=== PATIENT | female | born 1990 | race Caucasian/White ===

== ENCOUNTER 2017-05-20 05:10 | Emergency (ER) | payer MEDICAID ==
[~2017-05-20] VITALS: Ht 167.6 cm; Wt 78.5 kg
[~2017-05-20 05:10] MED LIST: ACET500C5 PO; BUTA1CAP39 PO; CYCL-319 PO; DOCU-144 PO; HYDR-3498 PO; HYDR-906 PO; IBUP-1542 PO; MAG-19 PO; NAPR-260 PO; OMEP20CA9 PO; ONDA4TAB35 PO; RANI150T9 PO; TRAM50TA2 PO
[2017-05-20 05:13] VITALS: Ht 167.6 cm; Wt 78.5 kg
[2017-05-20] MEDS ORDERED: LIDOCAINE/MYLANTA 40 ML BTL PO ONE (06:30)
[2017-05-20] MEDS ORDERED: HYDROCODONE/APAP (5/325) TAB PO ONE (06:30)
[2017-05-20 06:54] LABS: URINE BLOOD (Dip) POC Negative (NEGATIVE)
[2017-05-20 06:58] LABS: ADD SCAN DIFF NO
[2017-05-20 07:04] LABS: BASOPHILS % 0.4 % (0.0-2.0); EOSINOPHILS # 0.1 10^3/ul (0.0-0.5); EOSINOPHILS % 0.8 % (0.0-7.0); HEMATOCRIT 45.5 % (37.0-47.0); LYMPHOCYTES # 3.2 10^3/ul (0.8-2.9); LYMPHOCYTES % 31.2 % (15.0-51.0); MEAN CORPUSCULAR HEMOGLOBIN 29.6 pg (29.0-33.0); MEAN CORPUSCULAR VOLUME 89.9 fl (82.0-101.0); MEAN PLATELET VOLUME 9.7 fl (7.4-10.4); MONOCYTE # 0.7 10^3/ul (0.3-0.9); MONOCYTES % 6.8 % (0.0-11.0); NEUTROPHIL # 6.3 10^3/ul (1.6-7.5); NEUTROPHILS % 60.5 % (39.0-77.0); PLATELET COUNT 331 10^3/UL (140-415); RED BLOOD COUNT 5.06 10^6/ul (4.20-5.40); RED CELL DISTRIBUTION WIDTH 13.2 % (11.5-14.5); WHITE BLOOD COUNT 10.4 10^3/ul (4.8-10.8)
[2017-05-20 07:36] LABS: ALBUMIN 5.2 g/dl (3.3-4.9); ALBUMIN/GLOBULIN RATIO 1.33; BILIRUBIN,INDIRECT 0.3 mg/dl (0-1.1); BILIRUBIN,TOTAL 0.3 mg/dl (0.2-1.3); CREATININE 0.68 mg/dl (0.44-1.00); TOTAL PROTEIN 9.1 g/dl (6.1-8.1)
--- NOTE | 2017-05-20 08:00 | ERD ---
ER Documentation Chief Complaint Date/Time DATE: 05/20/17 TIME: 07:59 Chief Complaint left upper abd pain x 3 days HPI This a 27-year-old female who presents the emergency department today complaining of left-sided upper abdominal pain for the past 3 days. States she has a history of gastritis and took some ibuprofen. States she ate pancakes and tamales yesterday. Denies any fevers or chills, dysuria, nausea or vomiting. ROS All systems reviewed and are negative except as per history of present illness. Medications Home Meds Active Scripts Hydrocodone/Acetaminophen ([place]ison 5-325 Tablet) 1 Each Tablet, 1 TAB PO Q6H Y for PAIN, #10 TAB Prov:RENETTA JOHNSTONC 05/20/17 Famotidine* (Pepcid*) 20 Mg Tablet, 20 MG PO BID for 10 Days, TAB Prov:RENETTA JOHNSTONC 05/20/17 Acetaminophen* (Tylophen*) 500 Mg Capsule, 1 CAP PO Q6H Y for PAIN AND OR ELEVATED TEMP, #30 CAP Prov:RENETTA JOHNSTONC 05/20/17 Naproxen* (Naprosyn*) 500 Mg Tablet, 500 MG PO BID Y for PAIN AND/OR INFLAMMATION, #30 TAB Prov:RENETTA JOHNSTONC 11/11/16 Tramadol HCl (Tramadol HCl) 50 Mg Tablet, 50 MG PO Q4 Y for PAIN, #20 TAB Prov:RENETTA JOHNSTONC 11/11/16 Ibuprofen* (Ibuprofen*) 600 Mg Tablet, 600 MG PO Q6 for 3 Days, TAB Prov:STEPHY MARR 10/17/16 Docusate Sodium* (Colace*) 100 Mg Capsule, 100 MG PO TID, #30 CAP Prov:STEPHY MARR 10/17/16 Hydrocodone/Acetaminophen (Madison 5-325 Tablet) 1 Each Tablet, 1 TAB PO Q6H Y for PAIN, #7 TAB Prov:STEPHY MARR 09/14/16 Ibuprofen* (Motrin*) 600 Mg Tab, 600 MG PO Q6, #30 TAB Prov:STEPHY MARR 09/14/16 Cyclobenzaprine Hcl* (Cyclobenzaprine Hcl*) 10 Mg Tablet, 10 MG PO TID, #15 TAB Prov:SURINDER BOWENS NP 06/06/16 Ibuprofen* (Motrin*) 600 Mg Tab, 600 MG PO Q6H Y for PAIN AND OR ELEVATED TEMP, #30 TAB Prov:SURINDER BOWENS NP 06/06/16 Hydrocodone Bit-Acetaminophen* (Madison*) 5-325 Mg Tab, 1 TAB PO Q6 Y for PAIN, # 20 TAB Prov:SURINDER BOWENS NP 06/06/16 Ondansetron Hcl* (Zofran* ODT) 4 mg -ODT Tab.disper, 4 MG PO DAILY Y for NAUSEA AND/OR VOMITING, #10 TAB 0 Refills Prov:SEE MASSEY PA-C 05/04/16 Ibuprofen* (Motrin*) 600 Mg Tab, 600 MG PO Q8, #30 TAB 0 Refills Prov:SEE MASSEY PA-C 05/04/16 Hydrocodone Bit-Acetaminophen* (Madison*) 5-325 Mg Tab, 1 TAB PO Q6 Y for PAIN, # 10 TAB Prov:FRANCES BRIAN PA-C 03/26/16 Ranitidine Hcl* (Zantac*) 150 Mg Tablet, 150 MG PO BID Y for PAIN, #30 TAB Prov:FRANCES BRIAN PA-C 03/26/16 Omeprazole* (Prilosec*) 20 Mg Capsule.dr, 20 MG PO DAILY, #30 CAP Prov:FRANCES BRIAN PA-C 03/26/16 Omeprazole* (Prilosec*) 20 Mg Capsule.dr, 20 MG PO DAILY, #30 CAP Prov:SURINDER BOWENS NP 11/17/15 Magaldrate/Simethicone* (Mylanta*) 355 Ml Susp, 30 ML PO QID Y for GASTROINTESTINAL UPSET, #1 BOTTLE Prov:SURINDER BOWENS NP 11/17/15 Rnxprmhagfvgk-Rwnkctbvxy-Vjtbotcm-Codeine* (Fioricet w/ Codeine*) [id number]- 30MG Capsule, 1 CAP PO Q6H Y for PAIN LEVEL 1-5, #20 CAP Prov:SURINDER BOWENS NP 11/2/15 Ibuprofen* (Ibuprofen*) 600 Mg Tablet, 600 MG PO Q6H Y for PAIN for 7 Days, TAB Prov:STEPHY MARR 08/13/15 Reported Medications Acetaminophen* (Tylophen*) Unknown Strength Capsule, PO Q6H Y for PAIN AND OR ELEVATED TEMP, #20 CAP 10/03/15 Allergies Allergies: Coded Allergies: No Known Allergy (Unverified , 09/13/16) PMhx/Soc Medical and Surgical Hx: pt denies Medical Hx, pt denies Surgical Hx History of Surgery: No Anesthesia Reaction: No Hx Neurological Disorder: No Hx Respiratory Disorders: No Hx Cardiac Disorders: No Hx Psychiatric Problems: No Hx Miscellaneous Medical Probl: No Hx Alcohol Use: No Hx Substance Use: No Hx Tobacco Use: No Physical Exam Vitals Vital Signs Date Time Temp Pulse Resp B/P Pulse Ox O2 Delivery O2 Flow Rate FiO2 05/20/17 05:13 98.4 75 20 148/77 97 Physical Exam Const: Obese, no acute distress Head: Atraumatic Eyes: Normal Conjunctiva ENT: Normal External Ears, Nose and Mouth. Neck: Full range of motion..~ No meningismus. Resp: Clear to auscultation bilaterally Cardio: Regular rate and rhythm, no murmurs Abd: Soft, left upper quadrant tenderness non distended. Normal bowel sounds. No right upper quadrant tenderness. No right lower quadrant tenderness. No left lower quadrant tenderness. Skin: No petechiae or rashes Back: No midline or flank tenderness Ext: No cyanosis, or edema Neur: Awake and alert Psych: Normal Mood and Affect Result Diagram: 05/20/17 0645 05/20/17 0645 Results 24 hrs Laboratory Tests Test 05/20/17 06:45 05/20/17 06:57 White Blood Count 10.410^3/ul Red Blood Count 5.0610^6/ul Hemoglobin 15.0g/dl Hematocrit 45.5% Mean Corpuscular Volume 89.9fl Mean Corpuscular Hemoglobin 29.6pg Mean Corpuscular Hemoglobin Concent 33.0g/dl Red Cell Distribution Width 13.2% Platelet Count 98374^3/UL Mean Platelet Volume 9.7fl Neutrophils % 60.5% Lymphocytes % 31.2% Monocytes % 6.8% Eosinophils % 0.8% Basophils % 0.4% Nucleated Red Blood Cells % 0.0/100WBC Neutrophils # 6.310^3/ul Lymphocytes # 3.210^3/ul Monocytes # 0.710^3/ul Eosinophils # 0.110^3/ul Basophils # 0.010^3/ul Nucleated Red Blood Cells # 0.010^3/ul Sodium Level 140mmol/L Potassium Level 4.0mmol/L Chloride Level 104mmol/L Carbon Dioxide Level 25mmol/L Anion Gap 15 Blood Urea Nitrogen 7mg/dl Creatinine 0.68mg/dl Glucose Level 92mg/dl Calcium Level 10.0mg/dl Total Bilirubin 0.3mg/dl Direct Bilirubin 0.00mg/dl Indirect Bilirubin 0.3mg/dl Aspartate Amino Transf (AST/SGOT) 27IU/L Alanine Aminotransferase (ALT/SGPT) 40IU/L Alkaline Phosphatase 81IU/L Total Protein 9.1g/dl Albumin 5.2g/dl Globulin 3.90g/dl Albumin/Globulin Ratio 1.33 Lipase 112U/L Bedside Urine pH (LAB) 5.5 Bedside Urine Protein (LAB) Negative Bedside Urine Glucose (UA) Negative Bedside Urine Ketones (LAB) Negative Bedside Urine Blood Negative Bedside Urine Nitrite (LAB) Negative Bedside Urine Leukocyte Esterase (L Negative Current Medications Medications (Trade) Dose Ordered Sig/Erasmo Route PRN Reason Start Time Stop Time Status Last Admin Dose Admin Acetaminophen/ Hydrocodone Bitart (Madison (5/325)) 1 tab ONCE ONCE PO 05/20/17 06:30 05/20/17 06:31 DC 05/20/17 07:09 Miscellaneous Medication (Gi Cocktail (2)) 40 ml ONCE ONCE PO 05/20/17 06:30 05/20/17 06:31 DC 05/20/17 07:09 Procedures/MDM This a 27-year-old female presents the emergency department today complaining of left-sided upper abdominal pain for the past 3 days. Given the location of pain I elected to obtain laboratory work Laboratory work shows no elevated white blood cell count. She is not anemic. Platelets are within normal limits. Glucose within normal limits. Liver functions within normal limits. Lipase within normal limits. UA is negative for infection. test is negative. I do not feel the patient requires imaging at this time is of low suspicion for acute surgical abdomen or splenic rupture. Patient has no lower abdominal pain low suspicion for tubo-ovarian abscess, ovarian torsion, ectopic , acute appendicitis, diverticulitis, pancreatitis, acute cholecystitis. Patient has left upper quadrant pain of uncertain etiology at this time. I explained to the patient that she is to follow-up with her primary care doctor. Patient was instructed not to take ibuprofen or Naprosyn given her history of gastritis. Patient was given Madison and GI cocktail here in the emergency department and reported pain improved. I will give her a very short course of Madison, Tylenol and Pepcid for home. At this time the patient is stable for discharge and outpatient management. Patient should follow up with their PCP in the next 1-2 days. They may return to the emergency department sooner for any persistent or worsening of symptoms. Patient understood and agreed with the plan. Departure Diagnosis: Primary Impression: Abdominal pain Abdominal location: left upper quadrant Qualified Code: R10.12 - Left upper quadrant pain Condition: Fair RENETTA JOHNSTON PA-C May 20, 2017 08:00
[2017-05-20] MEDS ORDERED: ACET500C5 PO (08:09)
[2017-05-20] MEDS ORDERED: FAMO-18 PO (08:09)
[2017-05-20] MEDS ORDERED: HYDR-906 PO (08:10)
== END 2017-05-20 08:35 | disposition home or self-care (01) ==
LOC: FTE 05:10
DX: R10.12 Left upper quadrant pain (principal)
CPT/HCPCS: 80053; 81003; 83690; 85025; Z7502; Z7610; 99283

== ENCOUNTER 2017-06-23 20:33 | Emergency (ER) | payer MEDICAID ==
[~2017-06-23] VITALS: Ht 167.6 cm; Wt 75.0 kg
[~2017-06-23 20:33] MED LIST changes: +FAMO-96 PO
[2017-06-23 20:45] VITALS: Ht 167.6 cm; Wt 75.0 kg
[2017-06-23] MEDS ORDERED: IBUPROFEN 600 MG TAB PO ONE (21:30)
--- NOTE | 2017-06-23 21:59 | RADRPT ---
PROCEDURE: US Pelvis. CLINICAL INDICATION: Right pelvic pain. TECHNIQUE: The pelvis was evaluated with transabdominal and transvaginal sonography in the axial a nd sagittal planes. COMPARISON: Pelvic ultrasound dated 10/17/2016. FINDINGS: Uterus: 5.8 x 3.4 x 4.2 cm. Endometrium: 0.5 mm. Right ovary: 3.2 x 2.7 x 3.2 cm. Left ovary: 3.0 x 2.6 x 3.0 cm. Uterine masses: None. Ovarian masses: There are benign-appearing right ovarian cysts with the largest measuring 3.0 cm in maximal dimension. The left ovary is normal. Color Doppler and pulsed Doppler sonography demonstrat e normal flow to the ovaries. Other pelvic masses: None. Free fluid: None. IMPRESSION: 1. Benign-appearing right ovarian cysts with the largest measuring 3.0 cm. Follow-up pelvic ultras ound in 3 months is advised. 2. Otherwise unremarkable pelvic ultrasound-guided RPTAT: QQ .Deon Britton MD, MD Date Time Electronically viewed and signed by .Deon Britton MD, on 06/23/2017 21:59 .R/
--- NOTE | 2017-06-23 23:03 | ERD ---
ER Documentation Chief Complaint Date/Time DATE: 06/23/17 TIME: 23:01 Chief Complaint LLQ abdominal pain for past few days history of ovarian cyst HPI 27-year-old female history of ovarian cyst comes emergency department for left- sided lower abdominal pain for the past month. She describes it as achy, moderate, localized pain. She has a copy of an ultrasound that was done in December 2016 at [facility], that showed a cyst on the left ovary. She states that this is same pain, not improving with Tylenol. She has not had fevers or chills, vaginal discharge, vaginal bleeding. ROS All systems reviewed and are negative except as per history of present illness. Medications Home Meds Active Scripts Ibuprofen* (Motrin*) 600 Mg Tab, 600 MG PO Q6, #30 TAB Prov:FRANCES BRIAN PA-C 06/23/17 Hydrocodone/Acetaminophen ([place] 5-325 Tablet) 1 Each Tablet, 1 TAB PO Q6H Y for PAIN, #10 TAB Prov:RENETTA JOHNSTON PA-C 05/20/17 Famotidine* (Pepcid*) 20 Mg Tablet, 20 MG PO BID for 10 Days, TAB Prov:RENETTA JOHNSTON PA-C 05/20/17 Acetaminophen* (Tylophen*) 500 Mg Capsule, 1 CAP PO Q6H Y for PAIN AND OR ELEVATED TEMP, #30 CAP Prov:RENETTA JOHNSTON PA-C 05/20/17 Naproxen* (Naprosyn*) 500 Mg Tablet, 500 MG PO BID Y for PAIN AND/OR INFLAMMATION, #30 TAB Prov:RENETTA JOHNSTON PA-C 11/11/16 Tramadol HCl (Tramadol HCl) 50 Mg Tablet, 50 MG PO Q4 Y for PAIN, #20 TAB Prov:RENETTA JOHNSTON PA-C 11/11/16 Ibuprofen* (Ibuprofen*) 600 Mg Tablet, 600 MG PO Q6 for 3 Days, TAB Prov:STEPHY MARR 10/17/16 Docusate Sodium* (Colace*) 100 Mg Capsule, 100 MG PO TID, #30 CAP Prov:STEPHY MARR 10/17/16 Hydrocodone/Acetaminophen ([place] 5-325 Tablet) 1 Each Tablet, 1 TAB PO Q6H Y for PAIN, #7 TAB Prov:STEPHY MARR 09/14/16 Ibuprofen* (Motrin*) 600 Mg Tab, 600 MG PO Q6, #30 TAB Prov:STEPHY MARR 09/14/16 Cyclobenzaprine Hcl* (Cyclobenzaprine Hcl*) 10 Mg Tablet, 10 MG PO TID, #15 TAB Prov:SURINDER BOWENS NP 06/06/16 Ibuprofen* (Motrin*) 600 Mg Tab, 600 MG PO Q6H Y for PAIN AND OR ELEVATED TEMP, #30 TAB Prov:SURINDER BOWENS NP 06/06/16 Hydrocodone Bit-Acetaminophen* ([place]*) 5-325 Mg Tab, 1 TAB PO Q6 Y for PAIN, # 20 TAB Prov:SURINDER BOWENS NP 06/06/16 Ondansetron Hcl* (Zofran* ODT) 4 mg -ODT Tab.disper, 4 MG PO DAILY Y for NAUSEA AND/OR VOMITING, #10 TAB 0 Refills Prov:SEE MASSEY PA-C 05/04/16 Ibuprofen* (Motrin*) 600 Mg Tab, 600 MG PO Q8, #30 TAB 0 Refills Prov:SEE MASSEY PA-C 05/04/16 Hydrocodone Bit-Acetaminophen* ([place]*) 5-325 Mg Tab, 1 TAB PO Q6 Y for PAIN, # 10 TAB Prov:FRANCES BRIAN PA-C 03/26/16 Ranitidine Hcl* (Zantac*) 150 Mg Tablet, 150 MG PO BID Y for PAIN, #30 TAB Prov:FRANCES BRIAN PA-C 03/26/16 Omeprazole* (Prilosec*) 20 Mg Capsule.dr, 20 MG PO DAILY, #30 CAP Prov:FRANCES BRIAN PA-C 03/26/16 Omeprazole* (Prilosec*) 20 Mg Capsule.dr, 20 MG PO DAILY, #30 CAP Prov:SURINDER BOWENS NP 11/17/15 Magaldrate/Simethicone* (Mylanta*) 355 Ml Susp, 30 ML PO QID Y for GASTROINTESTINAL UPSET, #1 BOTTLE Prov:SURINDER BOWENS NP 11/17/15 Bbiccyqfmolmw-Uighhkutzc-Yjpocxof-Codeine* (Fioricet w/ Codeine*) [id number]- 30MG Capsule, 1 CAP PO Q6H Y for PAIN LEVEL 1-5, #20 CAP Prov:SURINDER BOWENS [employer] 10/03/15 Ibuprofen* (Ibuprofen*) 600 Mg Tablet, 600 MG PO Q6H Y for PAIN for 7 Days, TAB Prov:STEPHY MARR Norm 08/13/15 Reported Medications Acetaminophen* (Tylophen*) Unknown Strength Capsule, PO Q6H Y for PAIN AND OR ELEVATED TEMP, #20 CAP 10/03/15 Allergies Allergies: Coded Allergies: No Known Allergy (Unverified , 06/23/17) PMhx/Soc Medical and Surgical Hx: pt denies Medical Hx History of Surgery: No Anesthesia Reaction: No Hx Neurological Disorder: No Hx Respiratory Disorders: No Hx Cardiac Disorders: No Hx Psychiatric Problems: No Hx Miscellaneous Medical Probl: No Hx Alcohol Use: No Hx Substance Use: No Hx Tobacco Use: No Smoking Status: Never smoker Physical Exam Vitals Vital Signs Date Time Temp Pulse Resp B/P Pulse Ox O2 Delivery O2 Flow Rate FiO2 06/23/17 20:45 98.7 85 18 141/86 97 Physical Exam General: Well-developed, well-nourished. The patient appears in no acute distress. HEENT: Head is normocephalic, atraumatic. No scleral icterus. Neck: Supple. Nontender. Lungs: Clear to auscultation. Normal air movement. Heart: Regular rate and rhythm. S1 and S2 are normal. No murmurs, gallops, or rubs. Abdomen: Soft, tender in left lower quadrant that is mild, no rebound pain, no masses, right is unremarkable, nondistended. Bowel sounds are normoactive. Extremities: No clubbing or cyanosis. Normal pulses. Moving extremities x 4. No weakness. Neurologic: Alert and oriented 3. No focal deficits. Skin: Normal turgor. No rash or lesions. Results 24 hrs Current Medications Medications (Trade) Dose Ordered Sig/Erasmo Route PRN Reason Start Time Stop Time Status Last Admin Dose Admin Ibuprofen (Motrin) 600 mg ONCE ONCE PO 06/23/17 21:30 06/23/17 21:31 DC 06/23/17 21:28 Acetaminophen/ Hydrocodone Bitart ([place] (5/325)) 1 tab ONCE ONCE PO 06/24/17 00:00 06/24/17 00:01 DC 06/23/17 23:50 DIAGNOSTIC IMAGING REPORT Patient: MANJULA PETER : 1990 Age: 27 Sex: F MR #: [id number] DOS: 06/23/172216 Ordering MD: FRANCES BRIAN PA-C Location: [facility] Room/Bed: PROCEDURE: CT abdomen and pelvis without intravenous contrast. CLINICAL INDICATION: Pain. TECHNIQUE: CT of the abdomen/pelvis was performed utilizing axial images with reconstructions in sagittal and coronal planes. The administered radiation dose is CTDI 10.1 mGy, DLP 599 mGy-cm. COMPARISON: 05/04/2016 FINDINGS: Visualized Chest: The visualized lung bases are clear. Abdomen: The a spleen, pancreas, gallbladder,and adrenal glands are unremarkable. The kidneys are without hydronephrosis. No definite urinary calculi are seen. There is no evidence of bowel obstruction. The appendix is normal. No intra- abdominal free air is seen. There is no evidence of intra-abdominal adenopathy or free fluid. Pelvis: There is no evidence of pelvic adenopathy. The uterus and ovaries are without enlargement. The urinary bladder is unremarkable. There is no pelvic free fluid. Osseous structures: Unremarkable. IMPRESSION: No acute findings. RPTAT: HIKT .Elmer Stuart MD, MD Date Time Electronically viewed and signed by .Elmer Stuart MD, on 06/24/2017 00:04 .T/ CC: FRANCES BRIAN PA-C DIAGNOSTIC IMAGING REPORT Patient: MANJULA PETER : 1990 Age: 27 Sex: F MR #: [id number] DOS: 06/23/172108 Ordering MD: FRANCES BRIAN PA-C Location: [facility] Room/Bed: PROCEDURE: US Pelvis. CLINICAL INDICATION: Right pelvic pain. TECHNIQUE: The pelvis was evaluated with transabdominal and transvaginal sonography in the axial and sagittal planes. COMPARISON: Pelvic ultrasound dated 10/17/2016. FINDINGS: Uterus: 5.8 x 3.4 x 4.2 cm. Endometrium: 0.5 mm. Right ovary: 3.2 x 2.7 x 3.2 cm. Left ovary: 3.0 x 2.6 x 3.0 cm. Uterine masses: None. Ovarian masses: There are benign-appearing right ovarian cysts with the largest measuring 3.0 cm in maximal dimension. The left ovary is normal. Color Doppler and pulsed Doppler sonography demonstrate normal flow to the ovaries. Other pelvic masses: None. Free fluid: None. IMPRESSION: 1. Benign-appearing right ovarian cysts with the largest measuring 3.0 cm. Follow-up pelvic ultrasound in 3 months is advised. 2. Otherwise unremarkable pelvic ultrasound-guided RPTAT: QQ .Deon Britton MD, MD Date Time Electronically viewed and signed by .Deon Britton MD, on 06/23/2017 21:59 .R/ CC: FRANCES BRIAN PA-C [facility] 27-year-old female comes in with left-sided pelvic pain, she has had this pain for approximately a month and has a history of cysts. Ultrasound shows a right ovarian cyst, no mass in the left side, at this point I did offer the patient to follow-up with [facility] a list of referrals. She states that she has had a difficult time of follow-up, CT of the abdomen and pelvis was subsequently offered and patient states that she would prefer to get further imaging due to the pain. This was negative today. Suspicion for tubo-ovarian abscess, ovarian torsion is low. Patient symptoms have been going on for a month now without any acute changes. She will be given a copy of all of her workup to elicit [facility] referrals for outpatient follow-up. Departure Diagnosis: Primary Impression: Pelvic pain Condition: Good FRANCES BRIAN PA-C Jun 23, 2017 23:03
[2017-06-23] MEDS ORDERED: IBUP-1542 PO (23:42)
[2017-06-24] MEDS ORDERED: HYDROCODONE/APAP (5/325) TAB PO ONE
--- NOTE | 2017-06-24 00:04 | RADRPT ---
PROCEDURE: CT abdomen and pelvis without intravenous contrast. CLINICAL INDICATION: Pain. TECHNIQUE: CT of the abdomen/pelvis was performed utilizing axial images with reconstructions in s agittal and coronal planes. The administered radiation dose is CTDI 10.1 mGy, DLP 599 mGy-cm. COMPARISON: 05/04/2016 FINDINGS: Visualized Chest: The visualized lung bases are clear. Abdomen: The a spleen, pancreas, gallbladder,and adrenal glands are unremarkable. The kidneys are without hydronephrosis. No definite urinary calculi are seen. There is no evidence of bowel obstruction. The appendix is normal. No intra-abdominal free air is seen. There is no evidence of intra-abdominal adenopathy or free fluid. Pelvis: There is no evidence of pelvic adenopathy. The uterus and ovaries are without enlargement. The uri nary bladder is unremarkable. There is no pelvic free fluid. Osseous structures: Unremarkable. IMPRESSION: No acute findings. RPTAT: HIKT .Elmer Stuart MD, MD Date Time Electronically viewed and signed by .Elmer Stuart MD, on 06/24/2017 00:04 .T/
== END 2017-06-24 00:06 | disposition home or self-care (01) ==
LOC: FTE 20:33
DX: R10.2 Pelvic and perineal pain (principal)
CPT/HCPCS: 74176; 76830; 76856; Z7502; Z7610

== ENCOUNTER 2017-09-23 18:00 | Emergency (ER) | payer MEDICAID ==
[~2017-09-23] VITALS: Ht 167.6 cm; Wt 72.7 kg
[2017-09-23 19:14] VITALS: Ht 167.6 cm; Wt 72.7 kg
--- NOTE | 2017-09-23 21:32 | ERD ---
ER Documentation Chief Complaint Chief Complaint LLQ ap since last night. denies n/v/d HPI 27-year-old female presents to emergency department for complaints of lower abdominal pain suprapubic pain that started last night. Patient also pain as throbbing pain, sharp pain, worse upon urination. Unable to completely empty bladder. ROS All systems reviewed and are negative except as per history of present illness. Medications Home Meds Active Scripts Ibuprofen* (Motrin*) 600 Mg Tab, 600 MG PO Q6, #30 TAB Prov:FRANCES BRIAN PA-C 06/23/17 Hydrocodone/Acetaminophen ([place] 5-325 Tablet) 1 Each Tablet, 1 TAB PO Q6H Y for PAIN, #10 TAB Prov:RENETTA JOHNSTON PA-C 05/20/17 Famotidine* (Pepcid*) 20 Mg Tablet, 20 MG PO BID for 10 Days, TAB Prov:RENETTA JOHNSTON PA-C 05/20/17 Acetaminophen* (Tylophen*) 500 Mg Capsule, 1 CAP PO Q6H Y for PAIN AND OR ELEVATED TEMP, #30 CAP Prov:RENETTA JOHNSTON PA-C 05/20/17 Naproxen* (Naprosyn*) 500 Mg Tablet, 500 MG PO BID Y for PAIN AND/OR INFLAMMATION, #30 TAB Prov:RENETTA JOHNSTON PA-C 11/11/16 Tramadol HCl (Tramadol HCl) 50 Mg Tablet, 50 MG PO Q4 Y for PAIN, #20 TAB Prov:RENETTA JOHNSTON PA-C 11/11/16 Ibuprofen* (Ibuprofen*) 600 Mg Tablet, 600 MG PO Q6 for 3 Days, TAB Prov:STEPHY MARR 10/17/16 Docusate Sodium* (Colace*) 100 Mg Capsule, 100 MG PO TID, #30 CAP Prov:STEPHY MARR 10/17/16 Hydrocodone/Acetaminophen ([place] 5-325 Tablet) 1 Each Tablet, 1 TAB PO Q6H Y for PAIN, #7 TAB Prov:STEPHY MARR 09/14/16 Ibuprofen* (Motrin*) 600 Mg Tab, 600 MG PO Q6, #30 TAB Prov:STEPHY MARR 09/14/16 Cyclobenzaprine Hcl* (Cyclobenzaprine Hcl*) 10 Mg Tablet, 10 MG PO TID, #15 TAB Prov:SURINDER BOWENS NP 06/06/16 Ibuprofen* (Motrin*) 600 Mg Tab, 600 MG PO Q6H Y for PAIN AND OR ELEVATED TEMP, #30 TAB Prov:SURINDER BOWENS NP 06/06/16 Hydrocodone Bit-Acetaminophen* ([place]*) 5-325 Mg Tab, 1 TAB PO Q6 Y for PAIN, # 20 TAB Prov:SURINDER BOWENS NP 06/06/16 Ondansetron Hcl* (Zofran* ODT) 4 mg -ODT Tab.disper, 4 MG PO DAILY Y for NAUSEA AND/OR VOMITING, #10 TAB 0 Refills Prov:SEE MASSEY PA-C 05/04/16 Ibuprofen* (Motrin*) 600 Mg Tab, 600 MG PO Q8, #30 TAB 0 Refills Prov:SEE MASSEY PA-C 05/04/16 Hydrocodone Bit-Acetaminophen* ([place]*) 5-325 Mg Tab, 1 TAB PO Q6 Y for PAIN, # 10 TAB Prov:FRANCES BRIAN PA-C 03/26/16 Ranitidine Hcl* (Zantac*) 150 Mg Tablet, 150 MG PO BID Y for PAIN, #30 TAB Prov:FRANCES BRIAN PA-C 03/26/16 Omeprazole* (Prilosec*) 20 Mg Capsule.dr, 20 MG PO DAILY, #30 CAP Prov:FRANCES BRIAN PA-C 03/26/16 Omeprazole* (Prilosec*) 20 Mg Capsule.dr, 20 MG PO DAILY, #30 CAP Prov:SURINDER BOWENS NP 11/17/15 Magaldrate/Simethicone* (Mylanta*) 355 Ml Susp, 30 ML PO QID Y for GASTROINTESTINAL UPSET, #1 BOTTLE Prov:SURINDER BOWENS NP 11/17/15 Sdcxihfpgsavn-Ltpefzfhto-Ionahqyq-Codeine* (Fioricet w/ Codeine*) [id number]- 30MG Capsule, 1 CAP PO Q6H Y for PAIN LEVEL 1-5, #20 CAP Prov:SURINDER BOWENS NP 10/03/15 Ibuprofen* (Ibuprofen*) 600 Mg Tablet, 600 MG PO Q6H Y for PAIN for 7 Days, TAB Prov:STEPHY MARR 08/13/15 Reported Medications Acetaminophen* (Tylophen*) Unknown Strength Capsule, PO Q6H Y for PAIN AND OR ELEVATED TEMP, #20 CAP 10/03/15 Allergies Allergies: Coded Allergies: No Known Allergy (Unverified , 09/23/17) PMhx/Soc Medical and Surgical Hx: pt denies Medical Hx, pt denies Surgical Hx History of Surgery: No Anesthesia Reaction: No Hx Neurological Disorder: No Hx Respiratory Disorders: No Hx Cardiac Disorders: No Hx Psychiatric Problems: No Hx Miscellaneous Medical Probl: No Hx Alcohol Use: No Hx Substance Use: No Hx Tobacco Use: No Smoking Status: Never smoker FmHx Family History: No coronary disease, No diabetes, No other Physical Exam Vitals Vital Signs Date Time Temp Pulse Resp B/P Pulse Ox O2 Delivery O2 Flow Rate FiO2 09/23/17 19:14 98.5 72 18 134/79 100 Physical Exam GENERAL: The patient is well developed and appropriate for usual state of health, in no apparent distress. CHEST: Clear to auscultation bilaterally. There are no rales, wheezes or rhonchi. HEART: Regular rate and rhythm. No murmurs, clicks, rubs or gallops. No S3 or S4. ABDOMEN: Soft, nontender and nondistended. Good bowel sounds. No rebound or guarding. No gross peritonitis. No gross organomegaly or masses. No Bahena sign or McBurney point tenderness. BACK: No midline or flank tenderness. EXTREMITIES: Equal pulses bilaterally. There is no peripheral clubbing, cyanosis or edema. No focal swelling or erythema. Full range of motion. Grossly neurovascularly intact. NEURO: Alert and oriented. Cranial nerves 2-12 intact. Motor strength in all 4 extremities with 5/5 strength. Sensation grossly intact. Normal speech and gait. SKIN: There is no apparent rash or petechia. The skin is warm and dry. HEMATOLOGIC AND LYMPHATIC: There is no evidence of excessive bruising or lymphedema. No gross cervical, axillary, or inguinal lymphadenopathy. Result Diagram: 09/23/17213309/23/172133 Results 24 hrs Laboratory Tests Test 09/23/17 21:34 White Blood Count 11.110^3/ul Red Blood Count 4.6410^6/ul Hemoglobin 13.7g/dl Hematocrit 42.1% Mean Corpuscular Volume 90.7fl Mean Corpuscular Hemoglobin 29.5pg Mean Corpuscular Hemoglobin Concent 32.5g/dl Red Cell Distribution Width 13.4% Platelet Count 47574^3/UL Mean Platelet Volume 9.9fl Neutrophils % 58.0% Lymphocytes % 34.5% Monocytes % 5.7% Eosinophils % 0.9% Basophils % 0.5% Nucleated Red Blood Cells % 0.0/100WBC Neutrophils # 6.410^3/ul Lymphocytes # 3.810^3/ul Monocytes # 0.610^3/ul Eosinophils # 0.110^3/ul Basophils # 0.110^3/ul Nucleated Red Blood Cells # 0.010^3/ul Urine Color YELLOW Urine Clarity CLEAR Urine pH 6.0 Urine Specific [place] 1.020 Urine Ketones NEGATIVEmg/dL Urine Nitrite NEGATIVEmg/dL Urine Bilirubin NEGATIVEmg/dL Urine Urobilinogen NEGATIVEmg/dL Urine Leukocyte Esterase NEGATIVELeu/ul Urine Hemoglobin NEGATIVEmg/dL Urine Glucose NEGATIVEmg/dL Urine Total Protein NEGATIVEmg/dl Sodium Level 142mmol/L Potassium Level 3.9mmol/L Chloride Level 104mmol/L Carbon Dioxide Level 27mmol/L Anion Gap 15 Blood Urea Nitrogen 6mg/dl Creatinine 0.63mg/dl Glucose Level 84mg/dl Calcium Level 9.3mg/dl Total Bilirubin 0.1mg/dl Direct Bilirubin 0.00mg/dl Indirect Bilirubin 0.1mg/dl Aspartate Amino Transf (AST/SGOT) 28IU/L Alanine Aminotransferase (ALT/SGPT) 52IU/L Alkaline Phosphatase 76IU/L Total Protein 8.2g/dl Albumin 4.5g/dl Globulin 3.70g/dl Albumin/Globulin Ratio 1.21 Lipase 74U/L Current Medications Medications (Trade) Dose Ordered Sig/Erasmo Route PRN Reason Start Time Stop Time Status Last Admin Dose Admin Acetaminophen/ Hydrocodone Bitart ([place] (10/325)) 1 tab ONCE ONCE PO 09/24/17 00:00 09/24/17 00:01 DC 09/24/17 00:00 Ketorolac Tromethamine (Toradol) 60 mg ONCE STAT IM 09/24/17 03:08 09/24/17 03:09 DC 09/24/17 03:14 AMENDMENT: 09/24/2017 3:09:09 AM Kenny Mazariegos MD COMPARISON: CT abdomen/pelvis September 23, 2017. PROCEDURE: ULTRASOUND PELVIS CLINICAL INDICATION: 27-year-old female with pelvic pain. TECHNIQUE: Multiple sonographic images of the pelvis were obtained utilizing a transabdominal and endovaginal technique. The images were reviewed on a PACS workstation. COMPARISON: None. FINDINGS: The uterus is visualized and measures 9.6 x 4.6 x 5.3 cm. The endometrial echo complex is within normal limits and measures 2.7 mm. There is gusd-cu-zmxoyyoe free fluid within the cul-de-sac. The right ovary has a normal echotexture and measures 4.6 x 3.7 x 3.9 cm. There is a right ovarian cyst measuring 4.5 x 2.8 x 3.1 cm. The left ovary has a normal echotexture and measures 2.9 x 1.7 x 1.6 cm. There is flow identified within the ovaries bilaterally. No adnexal masses are noted. IMPRESSION: 1. Right ovarian cyst. 2. Lcny-ta-nyddlvqp pelvic free fluid. .Kenny Mazariegos MD, MD Date Time Electronically viewed and signed by .Kenny Mazariegos MD, on 09/24/2017 03:09 .M/ CC: SURINDER BOWENS NP PROCEDURE: CT ABDOMEN/PELVIS WITHOUT CONTRAST CLINICAL INDICATION: 27-year-old female with abdominal pain. TECHNIQUE: The study was performed utilizing a [employer] 64-slice CT scanner. Direct axial sections were obtained through the abdomen and pelvis without the use of intravenous contrast material. Sagittal and coronal reformations were obtained. One or more of the following dose reduction techniques were utilized: automated exposure control, adjustment of the mA and/ or kV according to patient's size and/or the use of iterative reconstruction technique. The images were reviewed on a PACS workstation. CTD/vol = 10.8 mGy ; Total Exam DLP = 605.3 mGy-cm. COMPARISON: None. FINDINGS: There is minimal left basilar subsegmental atelectasis. There is no evidence for significant pleural effusion. The liver has a normal size and contour without focal areas of abnormal density. No intrahepatic nor extrahepatic biliary ductal dilatation is seen. The gallbladder demonstrates no wall thickening nor pericholecystic fluid. No biliary stones are evident. The pancreas is without areas of abnormal attenuation. The spleen is identified and has a normal size without abnormal density. The adrenal glands are unremarkable. The kidneys are without abnormal density. No hydroureteronephrosis nor nephroureterolithiasis is evident. The urinary bladder contains urine. There is a small umbilical hernia with an opening of 8 x 11 mm containing fat. There is mild retained stool throughout the colon without gross bowel obstruction. The appendix is visualized and is without abnormal thickening or surrounding inflammatory reaction. The uterus is retroflexed. There is a right ovarian cyst measuring approximately 8.9 x 3.4 x 3.4 cm. There is mild pelvic free fluid. The aortoiliac vessels are without aneurysmal dilatation. The osseous structures are intact. IMPRESSION: 1. Mild retained stool throughout the colon without obstruction. 2. No CT evidence for appendicitis. 3. Right ovarian cyst. 4. Mild pelvic free fluid. .Kenny Mazariegos MD, MD Date Time Electronically viewed and signed by .Kenny Mazariegos MD, MD on 09/23/2017 23:31 .M/ Procedures/[facility] Medical Decision Making: Symptoms of pain most likely is consistent with a right ovarian cyst. Patient's pain is controlled, no suspicion for ovarian torsion. Patient has good flow on the ovaries. There is low suspicion for abdominal emergencies at this time. Patients abdominal exam is normal at this time. Patients radiology exam does not show any abdominal emergencies at this time. There is low suspicion for appendicitis, cholecystitis, abdominal aortic aneurysms or peritonitis at this time. There is low suspicion for sepsis. Patient appears well and is hemodynamically stable. Disposition: Home. Condition: Stable Prescription ibuprofen, tramadol Instructions: Patient is advised to take medications as prescribed. Patient is advised to rest, increase fluid intake and do brat diet for next 1-2 days and progress as tolerated. Patient is advised that if symptoms are worse, severe abdominal pain, uncontrolled vomiting, high fever, severe flank pain, worst signs and symptoms, to return to the emergency department immediately. Otherwise, patient can follow up with primary care doctor in 5-7 days. Disclaimer: Inadvertent spelling and grammatical errors are likely due to EHR/ dictation software use and do not reflect on the overall quality of patient care. Also, please note that the electronic time recorded on this note does not necessarily reflect the actual time of the patient encounter. Departure Diagnosis: Primary Impression: Ovarian cyst Laterality: right Qualified Code: N83.201 - Cyst of right ovary Condition: Stable Patient Instructions: Ovarian Cyst Additional Instructions: Patient is advised to take medications as prescribed. Patient is advised to rest, increase fluid intake and do brat diet for next 1-2 days and progress as tolerated. Patient is advised that if symptoms are worse, severe abdominal pain , uncontrolled vomiting, high fever, severe flank pain, worst signs and symptoms , to return to the emergency department immediately. Otherwise, patient can follow up with primary care doctor in 5-7 days. SURINDER BOWENS NP Sep 23, 2017 21:32
--- NOTE | 2017-09-23 21:32 | ERD ---
ER Documentation Chief Complaint Chief Complaint LLQ ap since last night. denies n/v/d HPI 27-year-old female presents to emergency department for complaints of lower abdominal pain suprapubic pain that started last night. Patient also pain as throbbing pain, sharp pain, worse upon urination. Unable to completely empty bladder. ROS All systems reviewed and are negative except as per history of present illness. Medications Home Meds Active Scripts Ibuprofen* (Motrin*) 600 Mg Tab, 600 MG PO Q6, #30 TAB Prov:FRANCES BRIAN PA-C 06/23/17 Hydrocodone/Acetaminophen ([place] 5-325 Tablet) 1 Each Tablet, 1 TAB PO Q6H Y for PAIN, #10 TAB Prov:RENETTA JOHNSTON PA-C 05/20/17 Famotidine* (Pepcid*) 20 Mg Tablet, 20 MG PO BID for 10 Days, TAB Prov:RENETTA JOHNSTON PA-C 05/20/17 Acetaminophen* (Tylophen*) 500 Mg Capsule, 1 CAP PO Q6H Y for PAIN AND OR ELEVATED TEMP, #30 CAP Prov:RENETTA JOHNSTON PA-C 05/20/17 Naproxen* (Naprosyn*) 500 Mg Tablet, 500 MG PO BID Y for PAIN AND/OR INFLAMMATION, #30 TAB Prov:RENETTA JOHNSTON PA-C 11/11/16 Tramadol HCl (Tramadol HCl) 50 Mg Tablet, 50 MG PO Q4 Y for PAIN, #20 TAB Prov:RENETTA JOHNSTON PA-C 11/11/16 Ibuprofen* (Ibuprofen*) 600 Mg Tablet, 600 MG PO Q6 for 3 Days, TAB Prov:STEPHY MARR 10/17/16 Docusate Sodium* (Colace*) 100 Mg Capsule, 100 MG PO TID, #30 CAP Prov:STEPHY MARR 10/17/16 Hydrocodone/Acetaminophen ([place] 5-325 Tablet) 1 Each Tablet, 1 TAB PO Q6H Y for PAIN, #7 TAB Prov:STEPHY MARR 09/14/16 Ibuprofen* (Motrin*) 600 Mg Tab, 600 MG PO Q6, #30 TAB Prov:STEPHY MARR 09/14/16 Cyclobenzaprine Hcl* (Cyclobenzaprine Hcl*) 10 Mg Tablet, 10 MG PO TID, #15 TAB Prov:SURINDER BOWENS NP 06/06/16 Ibuprofen* (Motrin*) 600 Mg Tab, 600 MG PO Q6H Y for PAIN AND OR ELEVATED TEMP, #30 TAB Prov:SURINDER BOWENS NP 06/06/16 Hydrocodone Bit-Acetaminophen* ([place]*) 5-325 Mg Tab, 1 TAB PO Q6 Y for PAIN, # 20 TAB Prov:SURINDER BOWENS NP 06/06/16 Ondansetron Hcl* (Zofran* ODT) 4 mg -ODT Tab.disper, 4 MG PO DAILY Y for NAUSEA AND/OR VOMITING, #10 TAB 0 Refills Prov:SEE MASSEY PA-C 05/04/16 Ibuprofen* (Motrin*) 600 Mg Tab, 600 MG PO Q8, #30 TAB 0 Refills Prov:SEE MASSEY PA-C 05/04/16 Hydrocodone Bit-Acetaminophen* ([place]*) 5-325 Mg Tab, 1 TAB PO Q6 Y for PAIN, # 10 TAB Prov:FRANCES BRIAN PA-C 03/26/16 Ranitidine Hcl* (Zantac*) 150 Mg Tablet, 150 MG PO BID Y for PAIN, #30 TAB Prov:FRANCES BRIAN PA-C 03/26/16 Omeprazole* (Prilosec*) 20 Mg Capsule.dr, 20 MG PO DAILY, #30 CAP Prov:FRANCES BRIAN PA-C 03/26/16 Omeprazole* (Prilosec*) 20 Mg Capsule.dr, 20 MG PO DAILY, #30 CAP Prov:SURINDER BOWENS NP 11/17/15 Magaldrate/Simethicone* (Mylanta*) 355 Ml Susp, 30 ML PO QID Y for GASTROINTESTINAL UPSET, #1 BOTTLE Prov:SURINDER BOWENS NP 11/17/15 Wxqkhmdcysjrg-Vbvsbjqnjg-Cepqqwye-Codeine* (Fioricet w/ Codeine*) [id number]- 30MG Capsule, 1 CAP PO Q6H Y for PAIN LEVEL 1-5, #20 CAP Prov:SURINDER BOWENS NP 10/03/15 Ibuprofen* (Ibuprofen*) 600 Mg Tablet, 600 MG PO Q6H Y for PAIN for 7 Days, TAB Prov:STEPHY MARR 08/13/15 Reported Medications Acetaminophen* (Tylophen*) Unknown Strength Capsule, PO Q6H Y for PAIN AND OR ELEVATED TEMP, #20 CAP 10/03/15 Allergies Allergies: Coded Allergies: No Known Allergy (Unverified , 09/23/17) PMhx/Soc Medical and Surgical Hx: pt denies Medical Hx, pt denies Surgical Hx History of Surgery: No Anesthesia Reaction: No Hx Neurological Disorder: No Hx Respiratory Disorders: No Hx Cardiac Disorders: No Hx Psychiatric Problems: No Hx Miscellaneous Medical Probl: No Hx Alcohol Use: No Hx Substance Use: No Hx Tobacco Use: No Smoking Status: Never smoker FmHx Family History: No coronary disease, No diabetes, No other Physical Exam Vitals Vital Signs Date Time Temp Pulse Resp B/P Pulse Ox O2 Delivery O2 Flow Rate FiO2 09/23/17 19:14 98.5 72 18 134/79 100 Physical Exam GENERAL: The patient is well developed and appropriate for usual state of health, in no apparent distress. CHEST: Clear to auscultation bilaterally. There are no rales, wheezes or rhonchi. HEART: Regular rate and rhythm. No murmurs, clicks, rubs or gallops. No S3 or S4. ABDOMEN: Soft, nontender and nondistended. Good bowel sounds. No rebound or guarding. No gross peritonitis. No gross organomegaly or masses. No Bahena sign or McBurney point tenderness. BACK: No midline or flank tenderness. EXTREMITIES: Equal pulses bilaterally. There is no peripheral clubbing, cyanosis or edema. No focal swelling or erythema. Full range of motion. Grossly neurovascularly intact. NEURO: Alert and oriented. Cranial nerves 2-12 intact. Motor strength in all 4 extremities with 5/5 strength. Sensation grossly intact. Normal speech and gait. SKIN: There is no apparent rash or petechia. The skin is warm and dry. HEMATOLOGIC AND LYMPHATIC: There is no evidence of excessive bruising or lymphedema. No gross cervical, axillary, or inguinal lymphadenopathy. Result Diagram: 09/23/17213309/[id number]/172133 Results 24 hrs Laboratory Tests Test 09/23/17 21:34 White Blood Count 11.110^3/ul Red Blood Count 4.6410^6/ul Hemoglobin 13.7g/dl Hematocrit 42.1% Mean Corpuscular Volume 90.7fl Mean Corpuscular Hemoglobin 29.5pg Mean Corpuscular Hemoglobin Concent 32.5g/dl Red Cell Distribution Width 13.4% Platelet Count 53026^3/UL Mean Platelet Volume 9.9fl Neutrophils % 58.0% Lymphocytes % 34.5% Monocytes % 5.7% Eosinophils % 0.9% Basophils % 0.5% Nucleated Red Blood Cells % 0.0/100WBC Neutrophils # 6.410^3/ul Lymphocytes # 3.810^3/ul Monocytes # 0.610^3/ul Eosinophils # 0.110^3/ul Basophils # 0.110^3/ul Nucleated Red Blood Cells # 0.010^3/ul Urine Color YELLOW Urine Clarity CLEAR Urine pH 6.0 Urine Specific [place] 1.020 Urine Ketones NEGATIVEmg/dL Urine Nitrite NEGATIVEmg/dL Urine Bilirubin NEGATIVEmg/dL Urine Urobilinogen NEGATIVEmg/dL Urine Leukocyte Esterase NEGATIVELeu/ul Urine Hemoglobin NEGATIVEmg/dL Urine Glucose NEGATIVEmg/dL Urine Total Protein NEGATIVEmg/dl Sodium Level 142mmol/L Potassium Level 3.9mmol/L Chloride Level 104mmol/L Carbon Dioxide Level 27mmol/L Anion Gap 15 Blood Urea Nitrogen 6mg/dl Creatinine 0.63mg/dl Glucose Level 84mg/dl Calcium Level 9.3mg/dl Total Bilirubin 0.1mg/dl Direct Bilirubin 0.00mg/dl Indirect Bilirubin 0.1mg/dl Aspartate Amino Transf (AST/SGOT) 28IU/L Alanine Aminotransferase (ALT/SGPT) 52IU/L Alkaline Phosphatase 76IU/L Total Protein 8.2g/dl Albumin 4.5g/dl Globulin 3.70g/dl Albumin/Globulin Ratio 1.21 Lipase 74U/L Current Medications Medications (Trade) Dose Ordered Sig/Erasmo Route PRN Reason Start Time Stop Time Status Last Admin Dose Admin Acetaminophen/ Hydrocodone Bitart ([place] (10/325)) 1 tab ONCE ONCE PO 09/24/17 00:00 09/24/17 00:01 DC 09/24/17 00:00 Ketorolac Tromethamine (Toradol) 60 mg ONCE STAT IM 09/24/17 03:08 09/24/17 03:09 DC 09/24/17 03:14 AMENDMENT: 09/24/2017 3:09:09 AM Kenny Mazariegos MD COMPARISON: CT abdomen/pelvis September 23, 2017. PROCEDURE: ULTRASOUND PELVIS CLINICAL INDICATION: 27-year-old female with pelvic pain. TECHNIQUE: Multiple sonographic images of the pelvis were obtained utilizing a transabdominal and endovaginal technique. The images were reviewed on a PACS workstation. COMPARISON: None. FINDINGS: The uterus is visualized and measures 9.6 x 4.6 x 5.3 cm. The endometrial echo complex is within normal limits and measures 2.7 mm. There is tvkh-ah-osbmyvoq free fluid within the cul-de-sac. The right ovary has a normal echotexture and measures 4.6 x 3.7 x 3.9 cm. There is a right ovarian cyst measuring 4.5 x 2.8 x 3.1 cm. The left ovary has a normal echotexture and measures 2.9 x 1.7 x 1.6 cm. There is flow identified within the ovaries bilaterally. No adnexal masses are noted. IMPRESSION: 1. Right ovarian cyst. 2. Sjuy-rd-bjidgpce pelvic free fluid. .Kenny Mazariegos MD, MD Date Time Electronically viewed and signed by .Kenny Mazariegos MD, on 09/24/2017 03:09 .M/ CC: SURINDER BOWENS NP PROCEDURE: CT ABDOMEN/PELVIS WITHOUT CONTRAST CLINICAL INDICATION: 27-year-old female with abdominal pain. TECHNIQUE: The study was performed utilizing a [employer] 64-slice CT scanner. Direct axial sections were obtained through the abdomen and pelvis without the use of intravenous contrast material. Sagittal and coronal reformations were obtained. One or more of the following dose reduction techniques were utilized: automated exposure control, adjustment of the mA and/ or kV according to patient's size and/or the use of iterative reconstruction technique. The images were reviewed on a PACS workstation. CTD/vol = 10.8 mGy ; Total Exam DLP = 605.3 mGy-cm. COMPARISON: None. FINDINGS: There is minimal left basilar subsegmental atelectasis. There is no evidence for significant pleural effusion. The liver has a normal size and contour without focal areas of abnormal density. No intrahepatic nor extrahepatic biliary ductal dilatation is seen. The gallbladder demonstrates no wall thickening nor pericholecystic fluid. No biliary stones are evident. The pancreas is without areas of abnormal attenuation. The spleen is identified and has a normal size without abnormal density. The adrenal glands are unremarkable. The kidneys are without abnormal density. No hydroureteronephrosis nor nephroureterolithiasis is evident. The urinary bladder contains urine. There is a small umbilical hernia with an opening of 8 x 11 mm containing fat. There is mild retained stool throughout the colon without gross bowel obstruction. The appendix is visualized and is without abnormal thickening or surrounding inflammatory reaction. The uterus is retroflexed. There is a right ovarian cyst measuring approximately 8.9 x 3.4 x 3.4 cm. There is mild pelvic free fluid. The aortoiliac vessels are without aneurysmal dilatation. The osseous structures are intact. IMPRESSION: 1. Mild retained stool throughout the colon without obstruction. 2. No CT evidence for appendicitis. 3. Right ovarian cyst. 4. Mild pelvic free fluid. .Kenny Mazariegos MD, MD Date Time Electronically viewed and signed by .Kenny Mazariegos MD, MD on 09/23/2017 23:31 .M/ Procedures/[facility] [place] Medical Decision Making: Symptoms of pain most likely is consistent with a right ovarian cyst. Patient's pain is controlled, no suspicion for ovarian torsion. Patient has good flow on the ovaries. There is low suspicion for abdominal emergencies at this time. Patients abdominal exam is normal at this time. Patients radiology exam does not show any abdominal emergencies at this time. There is low suspicion for appendicitis, cholecystitis, abdominal aortic aneurysms or peritonitis at this time. There is low suspicion for sepsis. Patient appears well and is hemodynamically stable. Disposition: Home. Condition: Stable Prescription ibuprofen, tramadol Instructions: Patient is advised to take medications as prescribed. Patient is advised to rest, increase fluid intake and do brat diet for next 1-2 days and progress as tolerated. Patient is advised that if symptoms are worse, severe abdominal pain, uncontrolled vomiting, high fever, severe flank pain, worst signs and symptoms, to return to the emergency department immediately. Otherwise, patient can follow up with primary care doctor in 5-7 days. Disclaimer: Inadvertent spelling and grammatical errors are likely due to EHR/ dictation software use and do not reflect on the overall quality of patient care. Also, please note that the electronic time recorded on this note does not necessarily reflect the actual time of the patient encounter. Departure Diagnosis: Primary Impression: Ovarian cyst Laterality: right Qualified Code: N83.201 - Cyst of right ovary Condition: Stable Patient Instructions: Ovarian Cyst Additional Instructions: Patient is advised to take medications as prescribed. Patient is advised to rest, increase fluid intake and do brat diet for next 1-2 days and progress as tolerated. Patient is advised that if symptoms are worse, severe abdominal pain , uncontrolled vomiting, high fever, severe flank pain, worst signs and symptoms , to return to the emergency department immediately. Otherwise, patient can follow up with primary care doctor in 5-7 days. SURINDER BOWENS NP Sep 23, 2017 21:32
--- NOTE | 2017-09-23 21:32 | ERD ---
ER Documentation Chief Complaint Chief Complaint LLQ ap since last night. denies n/v/d HPI 27-year-old female presents to emergency department for complaints of lower abdominal pain suprapubic pain that started last night. Patient also pain as throbbing pain, sharp pain, worse upon urination. Unable to completely empty bladder. ROS All systems reviewed and are negative except as per history of present illness. Medications Home Meds Active Scripts Ibuprofen* (Motrin*) 600 Mg Tab, 600 MG PO Q6, #30 TAB Prov:FRANCES BRIAN PA-C 06/23/17 Hydrocodone/Acetaminophen (Jesup 5-325 Tablet) 1 Each Tablet, 1 TAB PO Q6H Y for PAIN, #10 TAB Prov:RENETTA JOHNSTON PA-C 05/20/17 Famotidine* (Pepcid*) 20 Mg Tablet, 20 MG PO BID for 10 Days, TAB Prov:RENETTA JOHNSTON PA-C 05/20/17 Acetaminophen* (Tylophen*) 500 Mg Capsule, 1 CAP PO Q6H Y for PAIN AND OR ELEVATED TEMP, #30 CAP Prov:RENETTA JOHNSTON PA-C 05/20/17 Naproxen* (Naprosyn*) 500 Mg Tablet, 500 MG PO BID Y for PAIN AND/OR INFLAMMATION, #30 TAB Prov:RENETTA JOHNSTON PA-C 11/11/16 Tramadol HCl (Tramadol HCl) 50 Mg Tablet, 50 MG PO Q4 Y for PAIN, #20 TAB Prov:RENETTA JOHNSTON PA-C 11/11/16 Ibuprofen* (Ibuprofen*) 600 Mg Tablet, 600 MG PO Q6 for 3 Days, TAB Prov:STEPHY MARR 10/17/16 Docusate Sodium* (Colace*) 100 Mg Capsule, 100 MG PO TID, #30 CAP Prov:STEPHY MARR 10/17/16 Hydrocodone/Acetaminophen (Jesup 5-325 Tablet) 1 Each Tablet, 1 TAB PO Q6H Y for PAIN, #7 TAB Prov:STEPHY MARR 09/14/16 Ibuprofen* (Motrin*) 600 Mg Tab, 600 MG PO Q6, #30 TAB Prov:STEPHY MARR 09/14/16 Cyclobenzaprine Hcl* (Cyclobenzaprine Hcl*) 10 Mg Tablet, 10 MG PO TID, #15 TAB Prov:SURINDER BOWENS NP 06/06/16 Ibuprofen* (Motrin*) 600 Mg Tab, 600 MG PO Q6H Y for PAIN AND OR ELEVATED TEMP, #30 TAB Prov:SURINDER BOWENS NP 06/06/16 Hydrocodone Bit-Acetaminophen* (Jesup*) 5-325 Mg Tab, 1 TAB PO Q6 Y for PAIN, # 20 TAB Prov:SURINDER BOWENS NP 06/06/16 Ondansetron Hcl* (Zofran* ODT) 4 mg -ODT Tab.disper, 4 MG PO DAILY Y for NAUSEA AND/OR VOMITING, #10 TAB 0 Refills Prov:SEE MASSEY PA-C 05/04/16 Ibuprofen* (Motrin*) 600 Mg Tab, 600 MG PO Q8, #30 TAB 0 Refills Prov:SEE MASSEY PA-C 05/04/16 Hydrocodone Bit-Acetaminophen* (Jesup*) 5-325 Mg Tab, 1 TAB PO Q6 Y for PAIN, # 10 TAB Prov:FRANCES BRIAN PA-C 03/26/16 Ranitidine Hcl* (Zantac*) 150 Mg Tablet, 150 MG PO BID Y for PAIN, #30 TAB Prov:FRANCES BRIAN PA-C 03/26/16 Omeprazole* (Prilosec*) 20 Mg Capsule.dr, 20 MG PO DAILY, #30 CAP Prov:FRANCES RBIAN PA-C 03/26/16 Omeprazole* (Prilosec*) 20 Mg Capsule.dr, 20 MG PO DAILY, #30 CAP Prov:SURINDER BOWENS NP 11/17/15 Magaldrate/Simethicone* (Mylanta*) 355 Ml Susp, 30 ML PO QID Y for GASTROINTESTINAL UPSET, #1 BOTTLE Prov:SURINDER BOWENS NP 11/17/15 Wfnmplriffxra-Cbnuxteyyg-Njldopho-Codeine* (Fioricet w/ Codeine*) [id number]- 30MG Capsule, 1 CAP PO Q6H Y for PAIN LEVEL 1-5, #20 CAP Prov:SURINDER BOWENS NP 10/03/15 Ibuprofen* (Ibuprofen*) 600 Mg Tablet, 600 MG PO Q6H Y for PAIN for 7 Days, TAB Prov:STEPHY MARR 08/13/15 Reported Medications Acetaminophen* (Tylophen*) Unknown Strength Capsule, PO Q6H Y for PAIN AND OR ELEVATED TEMP, #20 CAP 10/03/15 Allergies Allergies: Coded Allergies: No Known Allergy (Unverified , 09/23/17) PMhx/Soc Medical and Surgical Hx: pt denies Medical Hx, pt denies Surgical Hx History of Surgery: No Anesthesia Reaction: No Hx Neurological Disorder: No Hx Respiratory Disorders: No Hx Cardiac Disorders: No Hx Psychiatric Problems: No Hx Miscellaneous Medical Probl: No Hx Alcohol Use: No Hx Substance Use: No Hx Tobacco Use: No Smoking Status: Never smoker FmHx Family History: No coronary disease, No diabetes, No other Physical Exam Vitals Vital Signs Date Time Temp Pulse Resp B/P Pulse Ox O2 Delivery O2 Flow Rate FiO2 09/23/17 19:14 98.5 72 18 134/79 100 Physical Exam GENERAL: The patient is well developed and appropriate for usual state of health, in no apparent distress. CHEST: Clear to auscultation bilaterally. There are no rales, wheezes or rhonchi. HEART: Regular rate and rhythm. No murmurs, clicks, rubs or gallops. No S3 or S4. ABDOMEN: Soft, nontender and nondistended. Good bowel sounds. No rebound or guarding. No gross peritonitis. No gross organomegaly or masses. No Bahena sign or McBurney point tenderness. BACK: No midline or flank tenderness. EXTREMITIES: Equal pulses bilaterally. There is no peripheral clubbing, cyanosis or edema. No focal swelling or erythema. Full range of motion. Grossly neurovascularly intact. NEURO: Alert and oriented. Cranial nerves 2-12 intact. Motor strength in all 4 extremities with 5/5 strength. Sensation grossly intact. Normal speech and gait. SKIN: There is no apparent rash or petechia. The skin is warm and dry. HEMATOLOGIC AND LYMPHATIC: There is no evidence of excessive bruising or lymphedema. No gross cervical, axillary, or inguinal lymphadenopathy. Result Diagram: 09/23/17213309/[id number]/172133 Results 24 hrs Laboratory Tests Test 09/23/17 21:34 White Blood Count 11.110^3/ul Red Blood Count 4.6410^6/ul Hemoglobin 13.7g/dl Hematocrit 42.1% Mean Corpuscular Volume 90.7fl Mean Corpuscular Hemoglobin 29.5pg Mean Corpuscular Hemoglobin Concent 32.5g/dl Red Cell Distribution Width 13.4% Platelet Count 66974^3/UL Mean Platelet Volume 9.9fl Neutrophils % 58.0% Lymphocytes % 34.5% Monocytes % 5.7% Eosinophils % 0.9% Basophils % 0.5% Nucleated Red Blood Cells % 0.0/100WBC Neutrophils # 6.410^3/ul Lymphocytes # 3.810^3/ul Monocytes # 0.610^3/ul Eosinophils # 0.110^3/ul Basophils # 0.110^3/ul Nucleated Red Blood Cells # 0.010^3/ul Urine Color YELLOW Urine Clarity CLEAR Urine pH 6.0 Urine Specific [place] 1.020 Urine Ketones NEGATIVEmg/dL Urine Nitrite NEGATIVEmg/dL Urine Bilirubin NEGATIVEmg/dL Urine Urobilinogen NEGATIVEmg/dL Urine Leukocyte Esterase NEGATIVELeu/ul Urine Hemoglobin NEGATIVEmg/dL Urine Glucose NEGATIVEmg/dL Urine Total Protein NEGATIVEmg/dl Sodium Level 142mmol/L Potassium Level 3.9mmol/L Chloride Level 104mmol/L Carbon Dioxide Level 27mmol/L Anion Gap 15 Blood Urea Nitrogen 6mg/dl Creatinine 0.63mg/dl Glucose Level 84mg/dl Calcium Level 9.3mg/dl Total Bilirubin 0.1mg/dl Direct Bilirubin 0.00mg/dl Indirect Bilirubin 0.1mg/dl Aspartate Amino Transf (AST/SGOT) 28IU/L Alanine Aminotransferase (ALT/SGPT) 52IU/L Alkaline Phosphatase 76IU/L Total Protein 8.2g/dl Albumin 4.5g/dl Globulin 3.70g/dl Albumin/Globulin Ratio 1.21 Lipase 74U/L Current Medications Medications (Trade) Dose Ordered Sig/Erasmo Route PRN Reason Start Time Stop Time Status Last Admin Dose Admin Acetaminophen/ Hydrocodone Bitart (Jesup (10/325)) 1 tab ONCE ONCE PO 09/24/17 00:00 09/24/17 00:01 DC 09/24/17 00:00 Ketorolac Tromethamine (Toradol) 60 mg ONCE STAT IM 09/24/17 03:08 09/24/17 03:09 DC 09/24/17 03:14 AMENDMENT: 09/24/2017 3:09:09 AM Kenny Mazariegos MD COMPARISON: CT abdomen/pelvis September 23, 2017. PROCEDURE: ULTRASOUND PELVIS CLINICAL INDICATION: 27-year-old female with pelvic pain. TECHNIQUE: Multiple sonographic images of the pelvis were obtained utilizing a transabdominal and endovaginal technique. The images were reviewed on a PACS workstation. COMPARISON: None. FINDINGS: The uterus is visualized and measures 9.6 x 4.6 x 5.3 cm. The endometrial echo complex is within normal limits and measures 2.7 mm. There is wnbo-ke-mycceoqi free fluid within the cul-de-sac. The right ovary has a normal echotexture and measures 4.6 x 3.7 x 3.9 cm. There is a right ovarian cyst measuring 4.5 x 2.8 x 3.1 cm. The left ovary has a normal echotexture and measures 2.9 x 1.7 x 1.6 cm. There is flow identified within the ovaries bilaterally. No adnexal masses are noted. IMPRESSION: 1. Right ovarian cyst. 2. Mwcv-bp-qmwimogb pelvic free fluid. .Kenny Mazariegos MD, MD Date Time Electronically viewed and signed by .Kenny Mazariegos MD, on 09/24/2017 03:09 .M/ CC: SURINDER BOWENS NP PROCEDURE: CT ABDOMEN/PELVIS WITHOUT CONTRAST CLINICAL INDICATION: 27-year-old female with abdominal pain. TECHNIQUE: The study was performed utilizing a [employer] 64-slice CT scanner. Direct axial sections were obtained through the abdomen and pelvis without the use of intravenous contrast material. Sagittal and coronal reformations were obtained. One or more of the following dose reduction techniques were utilized: automated exposure control, adjustment of the mA and/ or kV according to patient's size and/or the use of iterative reconstruction technique. The images were reviewed on a PACS workstation. CTD/vol = 10.8 mGy ; Total Exam DLP = 605.3 mGy-cm. COMPARISON: None. FINDINGS: There is minimal left basilar subsegmental atelectasis. There is no evidence for significant pleural effusion. The liver has a normal size and contour without focal areas of abnormal density. No intrahepatic nor extrahepatic biliary ductal dilatation is seen. The gallbladder demonstrates no wall thickening nor pericholecystic fluid. No biliary stones are evident. The pancreas is without areas of abnormal attenuation. The spleen is identified and has a normal size without abnormal density. The adrenal glands are unremarkable. The kidneys are without abnormal density. No hydroureteronephrosis nor nephroureterolithiasis is evident. The urinary bladder contains urine. There is a small umbilical hernia with an opening of 8 x 11 mm containing fat. There is mild retained stool throughout the colon without gross bowel obstruction. The appendix is visualized and is without abnormal thickening or surrounding inflammatory reaction. The uterus is retroflexed. There is a right ovarian cyst measuring approximately 8.9 x 3.4 x 3.4 cm. There is mild pelvic free fluid. The aortoiliac vessels are without aneurysmal dilatation. The osseous structures are intact. IMPRESSION: 1. Mild retained stool throughout the colon without obstruction. 2. No CT evidence for appendicitis. 3. Right ovarian cyst. 4. Mild pelvic free fluid. .Kenny Mazariegos MD, MD Date Time Electronically viewed and signed by .Kenny Mazariegos MD, MD on 09/23/2017 23:31 .M/ Procedures/[facility] Medical Decision Making: Symptoms of pain most likely is consistent with a right ovarian cyst. Patient's pain is controlled, no suspicion for ovarian torsion. Patient has good flow on the ovaries. There is low suspicion for abdominal emergencies at this time. Patients abdominal exam is normal at this time. Patients radiology exam does not show any abdominal emergencies at this time. There is low suspicion for appendicitis, cholecystitis, abdominal aortic aneurysms or peritonitis at this time. There is low suspicion for sepsis. Patient appears well and is hemodynamically stable. Disposition: Home. Condition: Stable Prescription ibuprofen, tramadol Instructions: Patient is advised to take medications as prescribed. Patient is advised to rest, increase fluid intake and do brat diet for next 1-2 days and progress as tolerated. Patient is advised that if symptoms are worse, severe abdominal pain, uncontrolled vomiting, high fever, severe flank pain, worst signs and symptoms, to return to the emergency department immediately. Otherwise, patient can follow up with primary care doctor in 5-7 days. Disclaimer: Inadvertent spelling and grammatical errors are likely due to EHR/ dictation software use and do not reflect on the overall quality of patient care. Also, please note that the electronic time recorded on this note does not necessarily reflect the actual time of the patient encounter. Departure Diagnosis: Primary Impression: Ovarian cyst Laterality: right Qualified Code: N83.201 - Cyst of right ovary Condition: Stable Patient Instructions: Ovarian Cyst Additional Instructions: Patient is advised to take medications as prescribed. Patient is advised to rest, increase fluid intake and do brat diet for next 1-2 days and progress as tolerated. Patient is advised that if symptoms are worse, severe abdominal pain , uncontrolled vomiting, high fever, severe flank pain, worst signs and symptoms , to return to the emergency department immediately. Otherwise, patient can follow up with primary care doctor in 5-7 days. SURINDER BOWENS NP Sep 23, 2017 21:32
--- NOTE | 2017-09-23 23:31 | RADRPT ---
PROCEDURE: CT ABDOMEN/PELVIS WITHOUT CONTRAST CLINICAL INDICATION: 27-year-old female with abdominal pain. TECHNIQUE: The study was performed utilizing a [employer] V[employer] 64-slice CT scanner. Direct axia l sections were obtained through the abdomen and pelvis without the use of intravenous contrast mate rial. Sagittal and coronal reformations were obtained. One or more of the following dose reduction t echniques were utilized: automated exposure control, adjustment of the mA and/or kV according to pat ient's size and/or the use of iterative reconstruction technique. The images were reviewed on a PAC S workstation. CTD/vol = 10.8 mGy; Total Exam DLP = 605.3 mGy-cm. COMPARISON: None. FINDINGS: There is minimal left basilar subsegmental atelectasis. There is no evidence for significant pleura l effusion. The liver has a normal size and contour without focal areas of abnormal density. No int rahepatic nor extrahepatic biliary ductal dilatation is seen. The gallbladder demonstrates no wall t hickening nor pericholecystic fluid. No biliary stones are evident. The pancreas is without areas of abnormal attenuation. The spleen is identified and has a normal size without abnormal density. The adrenal glands are unremarkable. The kidneys are without abnormal density. No hydroureteronephrosis nor nephroureterolithiasis is evident. The urinary bladder contains urine. There is a small umbilic al hernia with an opening of 8 x 11 mm containing fat. There is mild retained stool throughout the c olon without gross bowel obstruction. The appendix is visualized and is without abnormal thickening or surrounding inflammatory reaction. The uterus is retroflexed. There is a right ovarian cyst measuring approximately 8.9 x 3.4 x 3.4 cm. There is mild pelvic free fluid. The aortoiliac vessels are without aneurysmal dilatation. The osseous structures are intact. IMPRESSION: 1. Mild retained stool throughout the colon without obstruction. 2. No CT evidence for appendicitis. 3. Right ovarian cyst. 4. Mild pelvic free fluid. .Kenny Mazariegos MD, MD Date Time Electronically viewed and signed by .Kenny Mazariegos MD, MD on 09/23/2017 23:31 .M/
[2017-09-24] MEDS ORDERED: HYDROCODONE/APAP (10/325) TAB PO ONE
[2017-09-24] MEDS ORDERED: KETOROLAC 60 MG INJ IM STA (03:08)
--- NOTE | 2017-09-24 03:08 | RADRPT ---
AMENDMENT: 09/24/2017 3:09:09 AM Kenny Mazariegos MD COMPARISON: CT abdomen/pelvis September 23, 2017. PROCEDURE: ULTRASOUND PELVIS CLINICAL INDICATION: 27-year-old female with pelvic pain. TECHNIQUE: Multiple sonographic images of the pelvis were obtained utilizing a transabdominal and endovaginal technique. The images were reviewed on a PACS workstation. COMPARISON: None. FINDINGS: The uterus is visualized and measures 9.6 x 4.6 x 5.3 cm. The endometrial echo complex is within nor mal limits and measures 2.7 mm. There is usat-kv-ryzxselb free fluid within the cul-de-sac. The righ t ovary has a normal echotexture and measures 4.6 x 3.7 x 3.9 cm. There is a right ovarian cyst eriberto uring 4.5 x 2.8 x 3.1 cm. The left ovary has a normal echotexture and measures 2.9 x 1.7 x 1.6 cm. There is flow identified within the ovaries bilaterally. No adnexal masses are noted. IMPRESSION: 1. Right ovarian cyst. 2. Xriz-rl-tcphlnjc pelvic free fluid. .Kenny Mazariegos MD, Date Time Electronically viewed and signed by .Kenny Mazariegos MD, on 09/24/2017 03:09 .Cathy/
[2017-09-24] MEDS ORDERED: TRAM50TA2 PO (03:46)
[2017-09-24] MEDS ORDERED: IBUP-1542 PO (03:46)
== END 2017-09-24 04:05 | disposition home or self-care (01) ==
LOC: FTE 18:00
DX: N83.201 Unspecified ovarian cyst, right side (principal); R10.2 Pelvic and perineal pain
CPT/HCPCS: 36415; 74176; 76830; 76856; 80053; 81003; 83690; 85025; 96372; J1885; Z7502; Z7610

== ENCOUNTER 2018-05-06 11:54 | Emergency (ER) | END 2018-05-06 13:30 | disposition home or self-care (01) ==

== ENCOUNTER 2018-07-08 22:15 | Emergency (ER) | END 2018-07-09 02:42 | disposition home or self-care (01) ==

== ENCOUNTER 2018-07-11 07:54 | Emergency (ER) | END 2018-07-11 12:21 | disposition home or self-care (01) ==

== ENCOUNTER 2018-12-04 18:40 | Emergency (ER) | payer MEDICAID ==
[~2018-12-04] VITALS: Ht 167.6 cm; Wt 73.3 kg
[~2018-12-04 18:40] MED LIST changes: -CYCL-319 PO; +CYCL10TA7 PO; +HYDR-3980 PO; +HYDR-4011 PO; -HYDR-906 PO; +IBUP800T48 PO; -NAPR-260 PO; +NAPR-985 PO; +ONDA4TAB14 PO; +PRED20TA PO; +RANI150T35 PO; -RANI150T9 PO
[2018-12-04 18:43] VITALS: Ht 167.6 cm; Wt 73.3 kg
[2018-12-04] MEDS ORDERED: ACETAMINOPHEN 325 MG TAB PO ONE (21:00)
[2018-12-04] MEDS ORDERED: IBUPROFEN 600 MG TAB PO ONE (21:00)
[2018-12-04] MEDS ORDERED: ACET500C5 PO (22:50)
[2018-12-04] MEDS ORDERED: CEPH-443 PO (22:50)
[2018-12-04 23:22] VITALS: BP 140/80; PULSE 74; RESP 20
--- NOTE | 2018-12-05 06:15 | ERD ---
ER Documentation Chief Complaint Chief Complaint right 5th finger nail coming off while washing around 3 pm HPI 28-year-old female patient with no significant past medical history presents to the ED complaining of a right fifth finger nail injury as she was washing and drying her close. Reports that this happened about 3 PM yesterday. States that the nail was tugging on it she may have jammed her finger. Denies any fever, chills, nausea, vomiting, loss sensation, loss of range of motion. Patient reports that she is right-handed. ROS All systems reviewed and are negative except as per history of present illness. Medications Home Meds Active Scripts Cephalexin* (Keflex*) 500 Mg Capsule, 500 MG PO QID for 7 Days, CAP Prov:AUSTIN SOSA PA-C 12/04/18 Acetaminophen* (Tylophen*) 500 Mg Capsule, 1 CAP PO Q6H PRN for PAIN AND OR ELEVATED TEMP, #20 CAP Prov:AUSTIN SOSA PA-C 12/04/18 Ondansetron (Ondansetron Odt) 4 Mg Tab.rapdis, 4 MG PO Q6H PRN for NAUSEA AND/OR VOMITING, #10 TAB Prov:AUSTIN SOSA PA-C 07/11/18 Tramadol HCl (Tramadol HCl) 50 Mg Tablet, 50 MG PO Q6 PRN for SEVERE PAIN LEVEL 7-10, #10 TAB Prov:SURINDER BOWENS NP 07/09/18 Ibuprofen* (Motrin*) 600 Mg Tab, 600 MG PO Q6H PRN for PAIN AND OR ELEVATED TEMP, #30 TAB Prov:SURINDER BOWENS NP 07/09/18 Hydrocodone/Acetaminophen (Doyle 10-325 Tablet) 1 Each Tablet, 1 TAB PO Q6H PRN for PAIN, #20 TAB Prov:BECKYOSALYSESTOLOS ANakul DO 05/06/18 Prednisone* (Prednisone*) 20 Mg Tab, 60 MG PO DAILY for 5 Days, TAB Prov:BECKYOSALYSESTOLOS ANakul DO 05/06/18 Ibuprofen* (Motrin*) 800 Mg Tab, 800 MG PO Q6H PRN for PAIN AND OR ELEVATED TEMP, #30 TAB Prov:BECKYOSALYSESTOLOS ANakul DO 05/06/18 Ibuprofen* (Motrin*) 600 Mg Tab, 600 MG PO Q6H PRN for PAIN AND OR ELEVATED TEMP, #30 TAB Prov:SURINDER BOWENS NP 09/24/17 Tramadol HCl (Tramadol HCl) 50 Mg Tablet, 50 MG PO Q6 PRN for SEVERE PAIN LEVEL 7-10, #20 TAB Prov:SURINDER BOWENS NP 09/24/17 Ibuprofen* (Motrin*) 600 Mg Tab, 600 MG PO Q6, #30 TAB Prov:FRANCES BRIANC 06/23/17 Hydrocodone/Acetaminophen (Doyle 5-325 Tablet) 1 Each Tablet, 1 TAB PO Q6H PRN for PAIN, #10 TAB Prov:RENETTA JOHNSTON-C 05/20/17 Famotidine* (Pepcid*) 20 Mg Tablet, 20 MG PO BID for 10 Days, TAB Prov:RENETTA JOHNSTON-C 05/20/17 Acetaminophen* (Tylophen*) 500 Mg Capsule, 1 CAP PO Q6H PRN for PAIN AND OR ELEVATED TEMP, #30 CAP Prov:RENETTA JOHNSTON-C 05/20/17 Naproxen* (Naprosyn*) 500 Mg Tablet, 500 MG PO BID PRN for PAIN AND/OR INFLAMMATION, #30 TAB Prov:RENETTA JOHNSTONC 11/11/16 Tramadol HCl (Tramadol HCl) 50 Mg Tablet, 50 MG PO Q4 PRN for PAIN, #20 TAB Prov:RENETTA JOHNSTONC 11/11/16 Ibuprofen* (Ibuprofen*) 600 Mg Tablet, 600 MG PO Q6 for 3 Days, TAB Prov:STEPHY MARR 10/17/16 Docusate Sodium* (Colace*) 100 Mg Capsule, 100 MG PO TID, #30 CAP Prov:STEPHY MARR 10/17/16 Hydrocodone/Acetaminophen (Doyle 5-325 Tablet) 1 Each Tablet, 1 TAB PO Q6H PRN for PAIN, #7 TAB Prov:STEPHY MARR 09/14/16 Ibuprofen* (Motrin*) 600 Mg Tab, 600 MG PO Q6, #30 TAB Prov:STEPHY MARR 10/14/16 Cyclobenzaprine Hcl* (Cyclobenzaprine Hcl*) 10 Mg Tablet, 10 MG PO TID, #15 TAB Prov:SURINDER BOWENS NP 06/06/16 Ibuprofen* (Motrin*) 600 Mg Tab, 600 MG PO Q6H PRN for PAIN AND OR ELEVATED TEMP, #30 TAB Prov:SURINDER BOWENS NP 06/06/16 Hydrocodone Bit-Acetaminophen* (Doyle*) 5-325 Mg Tab, 1 TAB PO Q6 PRN for PAIN, #20 TAB Prov:SURINDER BOWESN NP 06/06/16 Ondansetron Hcl* (Zofran* ODT) 4 mg -ODT Tab.disper, 4 MG PO DAILY PRN for NAUSEA AND/OR VOMITING, #10 TAB 0 Refills Prov:SEE MASSEY PA-C 05/04/16 Ibuprofen* (Motrin*) 600 Mg Tab, 600 MG PO Q8, #30 TAB 0 Refills Prov:SEE MASSEY PA-C 05/04/16 Hydrocodone Bit-Acetaminophen* (Doyle*) 5-325 Mg Tab, 1 TAB PO Q6 PRN for PAIN, #10 TAB Prov:FRANCES BRIAN PA-C 03/26/16 Ranitidine Hcl* (Zantac*) 150 Mg Tablet, 150 MG PO BID PRN for PAIN, #30 TAB Prov:FRANCES BRIAN PA-C 03/26/16 Omeprazole* (Prilosec*) 20 Mg Capsule.dr, 20 MG PO DAILY, #30 CAP Prov:FRANCES BRIAN PA-C 03/26/16 Omeprazole* (Prilosec*) 20 Mg Capsule.dr, 20 MG PO DAILY, #30 CAP Prov:SURINDER BOWENS NP 11/17/15 Magaldrate/Simethicone* (Mylanta*) 355 Ml Susp, 30 ML PO QID PRN for GASTROINTESTINAL UPSET, #1 BOTTLE Prov:SURINDER BOWENS NP 11/17/15 Zuolpnmgpenia-Veslxsvjtt-Ksovycjl-Codeine* (Fioricet w/ Codeine*) [id number]-96CI-88-30MG Capsule, 1 CAP PO Q6H PRN for PAIN LEVEL 1-5, #20 CAP Prov:SURINDER BOWENS NURSES AIDE 10/03/15 Ibuprofen* (Ibuprofen*) 600 Mg Tablet, 600 MG PO Q6H PRN for PAIN for 7 Days, TAB Prov:STEPHY MARR Norm 08/13/15 Reported Medications Acetaminophen* (Tylophen*) Unknown Strength Capsule, PO Q6H PRN for PAIN AND OR ELEVATED TEMP, #20 CAP 10/03/15 Allergies Allergies: Coded Allergies: No Known Allergy (Unverified , 09/23/17) PMhx/Soc History of Surgery: No Anesthesia Reaction: No Hx Neurological Disorder: No Hx Respiratory Disorders: No Hx Cardiac Disorders: No Hx Psychiatric Problems: No Hx Miscellaneous Medical Probl: No Hx Alcohol Use: No Hx Substance Use: No Hx Tobacco Use: No Smoking Status: Never smoker FmHx Family History: No diabetes, No coronary disease Physical Exam Vitals Vital Signs Date Temp Pulse Resp B/P (MAP) Pulse Ox O2 O2 Flow FiO2 Time Delivery Rate 12/04/18 98.5 74 20 140/80 100 Room Air 23:22 (100) 12/04/18 98.1 88 18 150/84 98 18:43 (106) Physical Exam Const: Grk-bcv-tjofupvgs, well-nourished. In no acute distress. Head: Atraumatic, normocephalic Eyes: Normal Conjunctiva without injection ENT: Normal external ear, nose and mouth. Neck: Full range of motion. No meningismus. Resp: Clear to auscultation bilaterally. No wheezing, rhonchi, rales, or crackles. No accessory muscle use. No retractions. Cardio: Regular rate and rhythm, no murmurs Skin: No petechiae or rashes Back: No midline tenderness. No CVA tenderness. Ext: No cyanosis, or edema. Cap refill less than 2 seconds. Distal pulses intact bilaterally. Partial avulsion of the right nail noted. No erythema, edema. No purulent discharge. Full range of motion of the DIP, PIP, MCP joints bilaterally. Neur: Awake and alert. Normal gait and coordination. Muscle strength 5/5. Sensation intact bilaterally. Psych: Normal Mood and Affect Results 24 hrs Current Medications Medications Dose Sig/Erasmo Start Time Status Last (Trade) Ordered Route PRN Stop Time Admin Dose Reason Admin Ibuprofen 600 mg ONCE ONCE 1/3/19 Cancel (Motrin) PO 21:00 12/04/18 21:01 650 mg ONCE ONCE 12/04/18 DC 12/04/18 Acetaminophen PO 21:00 12/04/18 21:04 (Tylenol 21:01 Tab) Procedures/MDM 28-year-old female patient with no significant past medical history presents to the ED complaining of a right pinky finger partial nail avulsion. Patient is afebrile and nontoxic-appearing. Patient is placed in a metal splint. No fractures were noted. Patient has a partial nail avulsion. Nail will not be removed at this time to prevent any further infection. Patient will however be e given outpatient antibiotics with Keflex for further infection prevention. Splint Assessment: Neurovascularly intact pre and post splint placement with good fit. Patient's extremity symptoms have stabilized while they have been evaluated in the department and are appropriate for outpatient follow up. No evidence of fractures, dislocations, compartment syndrome, neurologic injury, vascular injury, open joint, open fracture, tendon laceration, septic arthritis, osteomyelitis, DVT, foreign body, or other emergent conditions. Diagnosis: Injury of nail Discharge medications: Tylenol, Keflex Follow up with primary care physician in 1-2 days. Instructed patient to return to the ED sooner for any worsening symptoms. Patient's questions were answered. Patient is hemodynamically stable. Patient understood and agreed with discharge plan. Patient discharged stable. Disclaimer: Inadvertent spelling and grammatical errors are likely due to EHR/dictation software use and do not reflect on the overall quality of patient care. Also, please note that the electronic time recorded on this note does not necessarily reflect the actual time of the patient encounter. Departure Diagnosis: Primary Impression: Injury of nail Condition: Stable Patient Instructions: Nail Avulsion, Partial Referrals: [facility] YOU HAVE RECEIVED A MEDICAL SCREENING EXAM AND THE RESULTS INDICATE THAT YOU DO NOT HAVE A CONDITION THAT REQUIRES URGENT TREATMENT IN THE EMERGENCY DEPARTMENT. FURTHER EVALUATION AND TREATMENT OF YOUR CONDITION CAN WAIT UNTIL YOU ARE SEEN IN YOUR DOCTORS OFFICE WITHIN THE NEXT 1-2 DAYS. IT IS YOUR RESPONSIBILITY TO MAKE AN APPOINTMENT FOR FOLOW-UP CARE. IF YOU HAVE A PRIMARY DOCTOR --you should call your primary doctor and schedule an appointment IF YOU DO NOT HAVE A PRIMARY DOCTOR YOU CAN CALL OUR PHYSICIAN REFERRAL HOTLINE AT IF YOU CAN NOT AFFORD TO SEE A PHYSICIAN YOU CAN CHOSE FROM THE FOLLOWING COMMUNITY CLINICS [facility] [address] [facility] [address] [facility] [address] [facility] [address] [facility] [address] [facility]. [facility] [address] [facility]. [facility] YOU HAVE RECEIVED A MEDICAL SCREENING EXAM AND THE RESULTS INDICATE THAT YOU DO NOT HAVE A CONDITION THAT REQUIRES URGENT TREATMENT IN THE EMERGENCY DEPARTMENT. FURTHER EVALUATION AND TREATMENT OF YOUR CONDITION CAN WAIT UNTIL YOU ARE SEEN IN YOUR DOCTORS OFFICE WITHIN THE NEXT 1-2 DAYS. IT IS YOUR RESPONSIBILITY TO MAKE AN APPOINTMENT FOR FOLOW-UP CARE. IF YOU HAVE A PRIMARY DOCTOR --you should call your primary doctor and schedule and appointment IF YOU DO NOT HAVE A PRIMARY DOCTOR YOU CAN CALL OUR PHYSICIAN REFERRAL HOTLINE AT . IF YOU CAN NOT AFFORD TO SEE A PHYSICIAN YOU CAN CHOSE FROM THE FOLLOWING [facility] INSTITUTIONS: [facility] [address] [place] [address] [facility] [address] [place] [address] [facility] [address] [place] [address] [facility] URGENT CARE/SPECIALTIES Additional Instructions: Call your primary care doctor TOMORROW for an appointment during the next 2-3 days.See the doctor sooner or return here if your condition worsens before your appointment time. AUSTIN SOSA PA-C Dec 05, 2018 06:15
== END 2018-12-04 23:24 | disposition home or self-care (01) ==
LOC: FTE 18:40
DX: S61.306A Unspecified open wound of right little finger with damage to nail, initial encounter (principal); X58.XXXA Exposure to other specified factors, initial encounter; Y92.9 Unspecified place or not applicable
CPT/HCPCS: 29130; 73140; Z7610